=== PATIENT | female | born 1980 | race Caucasian/White ===

== ENCOUNTER 2018-09-17 12:58 | Emergency (ER) | payer OTHER ==
[2018-09-17 13:02] VITALS: BP 113/76; PULSE 68; TEMP 98; BMI 24.0
[2018-09-17] MEDS ORDERED: IBUPROFEN 400 MG TABLET (FP) PO ONE ×2 (13:07→13:12)
--- NOTE | 2018-09-17 13:17 | PDOC ---
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 Patient denies history of back pains or injury. Patient denies saddle paresthesia, urinary or fecal incontinence. Patient denies back radiculopathy Timing/Duration: 4-6 hours Past History - Past Medical History Allergies/Adverse Reactions: Allergies Allergy/AdvReac Type Severity Reaction Status Date / Time No Known Allergies Allergy Verified 09/17/18 13:02 Home Medications: Ambulatory Orders Methocarbamol [Robaxin -] 500 mg PO BID PRN #14 tablet 09/17/18 Naproxen 500 mg PO BID PRN #20 tablet 09/17/18 Asthma: No Cancer: No Cardiac Disorders: No Diabetes: No HTN: No Seizures: No Thyroid Disease: No - Suicide/Smoking/Psychosocial Hx Smoking Status: No Smoking History: Never smoked Have you smoked in the past 12 months: No Number of Cigarettes Smoked Daily: 0 Hx Alcohol Use: Yes (SOCIAL) Drug/Substance Use Hx: No Hx Substance Use Treatment: No Review of Systems - Review of Systems Able to Perform ROS?: Yes Is the patient limited [place] Islander proficient: No Constitutional: No: Malaise, Weakness HEENTM: No: Symptoms Reported Respiratory: No: Symptoms reported ABD/GI: No: Nausea, Vomiting Musculoskeletal: Yes: Symptoms Reported, See HPI, Back Pain (mid lower back), Muscle Pain. No: Joint Stiffness Neurological: No: Numbness, Paresthesia, Tingling All Other Systems: Reviewed and Negative *Physical Exam - Vital Signs Last Vital Signs Temp Pulse Resp BP Pulse Ox 98 F 68 18 113/76 99 09/17/18 13:01 09/17/18 13:01 09/17/18 13:01 09/17/18 13:01 09/17/18 13:01 - Physical Exam Comments: 09/17/18 13:15 GENERAL: Well developed, well nourished. Awake and alert. No acute distress. CARDIOVASCULAR: Regular rate and rhythm. No murmurs, rubs, or gallops. PULMONARY: No evidence of respiratory distress. Lungs clear to auscultation bilaterally. No wheezing, rales or rhonchi. ABDOMINAL: Soft. Non-tender. Non-distended. No rebound or guarding. No organomegaly. Normoactive bowel sounds MUSCULOSKELETAL : mild tenderness over posterior paravertebral muscle lumbosacral spine of L4-S2 on bilateral sides. mild mid-line tenderness to lower lumber spine No bony deformities SKIN: Warm and dry. Normal capillary refill. No rashes. No jaundice. NEUROLOGICAL: Alert, awake, appropriate. No motor deficits in the lower extremities. Gait is normal without ataxia. PSYCHIATRIC: Cooperative. Good eye contact. Appropriate mood and affect. General Appearance: Yes: Nourished, Appropriately Dressed. No: Apparent Distress Moderate Sedation - Procedure Monitoring Vital Signs: Procedure Monitoring Vital Signs Temperature 98 F 09/17/18 13:01 Pulse Rate 68 09/17/18 13:01 Respiratory Rate 18 09/17/18 13:01 Blood Pressure 113/76 09/17/18 13:01 O2 Sat by Pulse Oximetry (%) 99 09/17/18 13:01 ED Treatment Course - RADIOLOGY Radiology Studies Ordered: Category Date Time Status SPINE-LUMBAR SACRAL [RAD] Stat Radiology 09/17/18 13:07 Ordered Medical Decision Making - Medical Decision Making 09/17/18 13:17 Patient with no significant past medical history present with complaint of lower back pain status post heavy lifting today. Exam significant for mild tenderness to lower lumbar region of L4-S2 with mild midline tenderness. Pain increased with external rotation of hip. Motrin 800 mg by mouth ordered for pain. X-ray of lumbosacral ordered to rule out acute dislocation. 09/17/18 13:42 X-ray of lumbosacral shows straightening of the lumbar spine consistent with spasm. No dislocation seen on x-ray. Patient stable for discharge on NSAIDs and muscle relaxer with orthopedics follow-up as needed. Patient advised to rest lower back in the next few days with no heavy lifting. *DC/Admit/Observation/Transfer Diagnosis at time of Disposition: Lumbago without sciatica Qualifiers: Chronicity: acute Back pain laterality: bilateral Qualified Code(s): M54.5 - Low back pain - Discharge Dispostion Disposition: HOME Condition at time of disposition: Stable Decision to Admit order: No - Prescriptions Prescriptions: Methocarbamol [Robaxin -] 500 mg PO BID PRN #14 tablet PRN Reason: Back Pain Naproxen 500 mg PO BID PRN #20 tablet PRN Reason: Back Pain - Referrals Referrals: Froy Solorzano MD [Primary Care Provider] - - Patient Instructions Printed Discharge Instructions: DI for Low Back Pain, Exercise May Reduce Risk of Low Back Pain Additional Instructions: Rest lower back for the next 3 days. No heavy lifting in the next 5 days. Take medication as prescribed as needed for back pain. Do back exercise and stretching to help her back pain. Follow-up with referred orthopedics if no improvement in 5 days. - Post Discharge Activity Forms/Work/School Notes: Back to Work
== END 2018-09-17 14:04 | disposition home or self-care (01) ==
LOC: JERFT 12:58
DX: S39.82XA Other specified injuries of lower back, initial encounter (principal); M54.5 Low back pain; X50.0XXA Overexertion from strenuous movement or load, initial encounter; Y93.F2 Activity, caregiving, lifting; Y92.230 Patient room in hospital as the place of occurrence of the external cause; Y99.0 Civilian activity done for income or pay
CPT/HCPCS: 72100-TC-FY; 99281-25

== ENCOUNTER 2019-07-08 01:25 | Inpatient (IN) | payer OTHER ==
[2019-07-08] MEDS ORDERED: LIDOCAINE HCL 1% PRESERVATIVE FREE - 30ML VIAL ONE (02:32)
[2019-07-08] MEDS ORDERED: OXYTOCIN 20 UNITS in 0.9% NS 20 UNIT/1,000 ML INFUS.BAG IV ONE ×2 (02:32→05:46)
[2019-07-08 02:54] LABS: BASO % 0.3 % (0-2.0); EOS % 0.4 % (0-4.5); HEMATOCRIT 39.6 % (32.4-45.2); HEMOGLOBIN 13.2 GM/dL (10.7-15.3); LYMPH % 18.8 % (8-40); MCHC 33.4 g/dl (32.0-36.0); MEAN CELL VOLUME 95.8 fl (80-96); MONO % 8.4 % (3.8-10.2); NEUT % 72.1 % (42.8-82.8); PLATELET COUNT 266 K/MM3 (134-434); RBC 4.13 M/mm3 (3.60-5.2); WHITE BLOOD COUNT 11.7 K/mm3 (4.0-10.0)
[2019-07-08 03:05] LABS: INR 0.92 (0.83-1.09); PROTHROMBIN TIME (PATIENT) 10.9 SEC (9.7-13.0)
[2019-07-08 03:08] LABS: ACTIVATED PTT 31.8 SECONDS (25.2-36.5)
[2019-07-08 03:12] LABS: BLOOD UREA NITROGEN 11.9 mg/dL (7-18); CALCIUM 8.4 mg/dL (8.5-10.1); CREATININE 0.5 mg/dL (0.55-1.3); POTASSIUM 3.9 mmol/L (3.5-5.1)
[2019-07-08] MEDS ORDERED: BENZOCAINE 20% 57 GM BOTTLE TP PRN (03:21)
[2019-07-08] MEDS ORDERED: WITCH HAZEL 50% (TUCKS) 40 PAD/JAR PAD TP PRN (03:21)
[2019-07-08] MEDS ORDERED: BISACODYL 10 MG SUPP.RECT RC PRN (03:21)
[2019-07-08] MEDS ORDERED: METHYLERGONOVINE MALEATE 0.2 MG/1 ML AMP IM PRN (03:21)
[2019-07-08] MEDS ORDERED: BENZOCAINE 28 GM HEMORRHOIDAL OINTMENT TP PRN (03:21)
[2019-07-08] MEDS ORDERED: OXYTOCIN 20 UNITS in 0.9% NS 20 UNIT/1,000 ML INFUS.BAG IV SCH (03:30)
--- NOTE | 2019-07-08 03:33 | HP ---
Past Medical History - Admission History of Present Illness: 38 yo @ 38 0/7 wks by first trimester ultrasound, EDC 07/22/2019 complicated by: 1. AMA - Seen by Stephen NASH Negative NT/NIPT/AFP Patient presents with chief complaint of contractions that began at 2200. She reports movement, denies leakage of fluid or vaginal bleeding. History Source: Patient Limitations to Obtaining History: No Limitations - Past Medical History Cardiovascular: No: HTN Pulmonary: No: Asthma Gastrointestinal: No: GERD ...: 2 ...Para: 1 ...Term: 1 ... Weeks Gestation by Dates: 38.0 ...EDC by Dates: 07/22/19 Heme/Onc: No: Anemia - Past Surgical History Past Surgical History: Yes: None Hx Myomectomy: No Hx Transabdominal Cerclage: No - Smoking History Smoking history: Never smoked - Alcohol/Substance Use Hx Alcohol Use: No History of Substance Use: reports: None Home Medications - Allergies Allergies/Adverse Reactions: Allergies Allergy/AdvReac Type Severity Reaction Status Date / Time No Known Allergies Allergy Verified 07/08/19 03:21 Family Medical History Family History: Denies Review of Systems - Review of Systems Constitutional: reports: No Symptoms Neck: reports: No Symptoms Cardiovascular: reports: No Symptoms Respiratory: reports: No Symptoms Gastrointestinal: reports: No Symptoms Musculoskeletal: reports: No Symptoms Neurological: reports: No Symptoms Hematology/Lymphatic: reports: No Symptoms Physical Exam - Maternity Vital Signs: Vital Signs Temperature 98.4 F 07/08/19 02:00 Pulse Rate 88 07/08/19 02:00 Respiratory Rate 20 07/08/19 02:00 Blood Pressure 137/80 07/08/19 02:00 O2 Sat by Pulse Oximetry (%) Constitutional: Yes: Well Nourished, No Distress, Calm Cardiovascular: Yes: Regular Rate and Rhythm Lungs: Clear to auscultation - Abdominal Exam/OB Number of Fetuses: Single Presentation: Vertex Contractions: Yes Regularity: Regular Category: I Accelerations: None Decelerations: None - Vaginal Exam/OB Vaginal Bleediing: No Speculum Exam: Yes Dilatation (cm): 4 - Physical Exam Edema: No - Labs Lab Results: CBC, BMP 07/08/19 02:30 07/08/19 02:30 PNL: AB positive, antibody negative, RPR NR; HIV neg; HCV neg; HBs Ag neg; Hg Torrie AA; GCT 119; GBS neg Hemorrhage Risk Assessment - Risk Factors Medium Risk Factors: Yes: None High Risk Factors: Yes: None Risk Score: 1 Risk Level: Medium Risk Assessment/Plan 38 yo @ 38 0/7 wks active labor 1. Admit to L&D 2. Consents reviewed and signed 3. GBS neg 4. Will offer pain medcation upon patient request 5. Will proceed with expectant management
--- NOTE | 2019-07-08 03:37 | PN ---
Delivery - Delivery Vaginal Delivery: No Problems Type of Anesthesia: None Episiotomy/Laceration: Midline, 2nd degree EBL (cc): 400 Delivery, Single - Stages of Labor Date 1st Stage Initiatied: 07/08/19 Time 1st Stage Initiated: 01:40 Date 2nd Stage Initiated: 07/08/19 Time 2nd Stage Initiated: 02:40 Date of Delivery: 07/08/19 Time of Delivery: 02:58 Date Placenta Delivered: 07/08/19 Time Placenta Delivered: 03:11 Placenta: Yes: Spontaneous - Condition of Infant Infant Gender: Female Position: Right, OA Total Hours ROM (Hrs/Mins): 1 hour 11 minutes - 1 Minute Total Score: 9 5 Minutes Total Score: 9 Remarks - Remarks Remarks: Patient progressed to fully dilated and at 0258 via delivered a viable female infant in CLEMENTE position, APGARs 9,9. Weight and length unknown at this time. Head delivered spontaneously followed by shoulders and body without difficulty. with spontaneous cry. Nose and mouth was bulb suctioned. Cord was clamped and cut. Perineum and vagina examined, a second degree laceration was noted and repaired in the usual fashion. Placenta was delivered spontaneously and intact. 20 units of pitocin in 1 L IVF was given. All counts correct x 2. Mother and stable in LDR. EBL 400cc.
[2019-07-08] MEDS ORDERED: BUTORPHANOL TARTRATE 2 MG/ML VIAL IVPB ONE (07:15)
[2019-07-08] MEDS ORDERED: ELECTROLYTE-148 SOLN 1,000 ML IV SCH (07:15)
[2019-07-08] MEDS ORDERED: PROMETHAZINE HCL 25 MG/1 ML VIAL IVPB ONE (07:15)
[2019-07-08] MEDS ORDERED: IBUPROFEN 600 MG TABLET (FP) PO ONE (11:42)
[2019-07-08] MEDS ORDERED: ACETAMINOPHEN 325 MG TABLET (FP) ONE (11:42)
[2019-07-08] MEDS: IBUPROFEN 600 MG TABLET (FP) PO PRN ×2 (11:45→22:35)
[2019-07-08] MEDS: ACETAMINOPHEN 325 MG TABLET (FP) PO PRN ×2 (11:45→22:36)
[2019-07-09] MEDS: PRENATAL VITAMINS W/ FOLIC ACID TABLET (FP) PO SCH ×2 (07:37→10:49)
--- NOTE | 2019-07-09 07:47 | PN ---
Progress Note (short form) - Note Progress Note: ppd 1,doing well, no c/o CBC, BMP 07/08/19 02:30 07/08/19 02:30 Last Vital Signs Temp Pulse Resp BP Pulse Ox 97.7 F 86 18 128/67 97 07/09/19 05:56 07/09/19 05:56 07/09/19 05:56 07/09/19 05:56 07/08/19 03:30 abdomen soft, no cva uterus firm, non tender lochia mild , no clots no calf tenderness plan ambulate , cbc plan for d/c home in am
[2019-07-09 09:10] LABS: BASO % 0.3 % (0-2.0); EOS % 1.9 % (0-4.5); HEMATOCRIT 32.4 % (32.4-45.2); HEMOGLOBIN 10.7 GM/dL (10.7-15.3); LYMPH % 17.8 % (8-40); MCH 31.7 pg (25.7-33.7); MEAN CELL VOLUME 96.1 fl (80-96); MEAN PLT VOLUME 8.6 fl (7.5-11.1); MONO % 5.7 % (3.8-10.2); NEUT % 74.3 % (42.8-82.8); PLATELET COUNT 213 K/MM3 (134-434); RBC 3.37 M/mm3 (3.60-5.2); RDW 15.6 % (11.6-15.6); WHITE BLOOD COUNT 13.5 K/mm3 (4.0-10.0)
[2019-07-09] MEDS: IBUPROFEN 600 MG TABLET (FP) PO PRN (21:16)
[2019-07-09] MEDS: ACETAMINOPHEN 325 MG TABLET (FP) PO PRN (21:16)
[2019-07-09] MEDS ORDERED: SENNOSIDES/DOCUSATE COMBO (SENNA PLUS) TABLET (UD) PO PRN (22:00)
[2019-07-10] MEDS: ACETAMINOPHEN 325 MG TABLET (FP) PO PRN (05:43)
[2019-07-10] MEDS: IBUPROFEN 600 MG TABLET (FP) PO PRN (05:44)
[2019-07-10 09:21] VITALS: BP 119/69; PULSE 76; TEMP 98.7
[2019-07-10] MEDS: PRENATAL VITAMINS W/ FOLIC ACID TABLET (FP) PO SCH (09:44)
--- NOTE | 2019-07-10 13:56 | DS ---
Physical Exam-CUSTOMER ACQUISITION SPECIALIST Vital Signs: Vital Signs Temperature 98.7 F 07/10/19 08:25 Pulse Rate 76 07/10/19 08:25 Respiratory Rate 18 07/10/19 08:25 Blood Pressure 119/69 07/10/19 08:25 O2 Sat by Pulse Oximetry (%) 97 07/08/19 03:30 Constitutional: Yes: Well Nourished, No Distress, Calm Eyes: Yes: WNL HENT: Yes: WNL, Atraumatic, Normocephalic Neck: Yes: WNL, Supple, Trachea Midline Cardiovascular: Yes: WNL, Regular Rate and Rhythm Respiratory: Yes: WNL, Regular, CTA Bilaterally Gastrointestinal: Yes: WNL, Normal Bowel Sounds, Soft ...Rectal Exam: Yes: WNL Renal/: Yes: WNL Pelvis: Yes: WNL, Lymph Nodes ....Post : Yes: Uterus firm, Uterus non-tender Breast(s): Yes: WNL Musculoskeletal: Yes: WNL Extremities: Yes: WNL Integumentary: Yes: WNL Neurological: Yes: WNL, Alert, Oriented ...Motor Strength: WNL Psychiatric: Yes: WNL, Alert, Oriented Labs: CBC, BMP 07/09/19 08:15 07/08/19 02:30 Delivery - Delivery Vaginal Delivery: No Problems Type of Anesthesia: Local Episiotomy/Laceration: Midline, 2nd degree EBL (cc): 400 Delivery, Single - Stages of Labor Date 1st Stage Initiatied: 07/08/19 Time 1st Stage Initiated: 01:40 Date 2nd Stage Initiated: 07/08/19 Time 2nd Stage Initiated: 02:40 Date of Delivery: 07/08/19 Time of Delivery: 02:58 Time Placenta Delivered: 03:11 Placenta: Yes: Spontaneous - Condition of Knife Operator/Pulmonary Function Technician Present: No Infant Gender: Female Weight: 7 lb 15 oz Position: Right, OA Total Hours ROM (Hrs/Mins): 1 hour 11 minutes - 1 Minute Total Score: 9 5 Minutes Total Score: 9 - Feeding Plan Initial Plan: Elected not to breastfeed exclusively throughout hospitalization Discharge Summary Problems reviewed: Yes Reason For Visit: LABOR Procedures: Principal: normal vaginal delivery Hospital Course: unremarkable Plan of Treatment: Return to office in 4-6 wks Physical activity Resume your normal everyday activity as tolerated no heavy lifting or exercise until seen by your surgeon. You may walk unlimited [place] of and climb stairs. You may resume driving the car when you feel safe and comfortable behind the wheel. No sexual activity as instructed. Wound care If you have a bandage, leave it on, and keep dry for 48-72 hours. After that time discard the outer bandage. If they are tapes on the skin under the out of bandage leave them in place. They will peel off in the next 7 to 10 days. Do Not Peel them off. You may shower the day after surgery. If there are tapes present on the skin, you may shower over them. Diet There are no dietary restrictions. Eat healthy, high-fiber foods. Drink 6 to 8 glasses of liquid each day. This will assist in keeping your bowels are regular. Pain management You may take Tylenol or acetaminophen or Ibuprofen (for example, Motrin, Advil etc.) from my pain prescription medication is ordered should be taken as prescribed for moderate to severe pain. Call MD for any of the following: Severe pain not relieved by medication Fever of 101 or higher Excessive bleeding or drainage on dressing Inability to urinate Condition: Good - Instructions Diet, Activity, Other Instructions: Call Dr. Landry and make appt. to be seen in 4 to 6 weeks. If pain, fever or heavy bleeding call M.D. Referrals: Josefina Landry MD [Staff Physician] - Disposition: HOME - Home Medications Comprehensive Discharge Medication List: Ambulatory Orders Lidocaine 5% Patch [Lidoderm -] 1 patch TP DAILY PRN #30 patch 09/17/18 Methocarbamol [Robaxin -] 500 mg PO BID #14 tablet 09/17/18 Naproxen 500 mg PO BID PRN #20 tablet 09/17/18 Vitamins (Sjr) - 1 tab PO DAILY 07/08/19 Prescription Drug Monitoring Program (I-STOP) results: I-STOP reviewed and no issues identified
== END 2019-07-10 17:30 | disposition home or self-care (01) | DRG 807 ==
LOC: JLDR 01:25 → MERGE 01:25 → J3W 15:33
PROVIDERS: ADMIT Obstetrics & Gynecology; ATTEND Obstetrics & Gynecology
PROC: 10E0XZZ Delivery of Products of Conception, External Approach (ICD-10-PCS; principal; 2019-07-08)
PROC: 0KQM0ZZ Repair Perineum Muscle, Open Approach (ICD-10-PCS; 2019-07-08)
PROC: 0W8NXZZ Division of Female Perineum, External Approach (ICD-10-PCS; 2019-07-08)
DX: O70.1 Second degree perineal laceration during delivery (principal); Z37.0 Single live birth; Z3A.38 38 weeks gestation of pregnancy
CPT/HCPCS: 36415; 59409; 80048; 85025; 85610; 85730; 86593; 86850; 86900; 86901; 87389

== ENCOUNTER 2021-01-01 09:15 | Emergency (ER) | payer OTHER ==
[2021-01-01 09:32] VITALS: BP 91/64; PULSE 61; TEMP 98.6; BMI 22.6
[2021-01-01] MEDS ORDERED: ACETAMINOPHEN 650 MG/20.3 ML ORAL SOLUTION (CUPS) PO ONE (10:20)
[2021-01-01] MEDS ORDERED: ACETAMINOPHEN 325 MG TABLET (FP) ONE (10:36)
== END 2021-01-01 11:05 | disposition home or self-care (01) ==
LOC: JER 09:15
DX: M25.561 Pain in right knee (principal); M25.562 Pain in left knee
CPT/HCPCS: 73562-TC-LT-FY; 73562-TC-RT-FY; 99284-25

== ENCOUNTER 2021-11-19 04:43 | Day surgery (SDC) | payer OTHER ==
[2021-11-19 09:59] VITALS: TEMP 97
[2021-11-19 10:39] VITALS: BP 126/71; PULSE 70
== END 2021-11-19 11:30 | disposition home or self-care (01) ==
LOC: JASU-ENDO 04:43
PROVIDERS: ATTEND Internal Medicine Gastroenterology
PROC: 0DJD8ZZ Inspection of Lower Intestinal Tract, Via Natural or Artificial Opening Endoscopic (ICD-10-PCS; principal; 2021-11-19 09:00)
DX: Z12.11 Encounter for screening for malignant neoplasm of colon (principal); K92.1 Melena; K64.8 Other hemorrhoids
CPT/HCPCS: 81025

== ENCOUNTER 2023-09-01 13:50 | Emergency (ER) | payer OTHER ==
[2023-09-01 14:09] VITALS: BP 113/69; PULSE 69; RESP 18; TEMP 98.3; BMI 24.6
== END 2023-09-01 14:44 | disposition home or self-care (01) ==
LOC: JERFT 13:50
DX: H10.33 Unspecified acute conjunctivitis, bilateral (principal)
CPT/HCPCS: 99283-25

== ENCOUNTER 2023-11-24 10:56 | Emergency (ER) | payer OTHER ==
[2023-11-24 11:09] VITALS: BP 128/67; PULSE 68; RESP 16; TEMP 97.8; BMI 23.7
== END 2023-11-24 12:12 | disposition home or self-care (01) ==
LOC: JERFT 10:56
DX: H61.21 Impacted cerumen, right ear (principal); H92.01 Otalgia, right ear; R09.81 Nasal congestion
CPT/HCPCS: 99283-25

== ENCOUNTER 2024-09-23 12:31 | Emergency (ER) | payer OTHER ==
[2024-09-23 12:41] VITALS: BP 109/72; PULSE 81; RESP 20; TEMP 98.4; BMI 24.0
[2024-09-23] MEDS: ACETAMINOPHEN 1000 MG/100 ML BAG IVPB ONE (15:01)
[2024-09-23 15:58] LABS: BASO % 0.4 % (0-2.0); EOS % 1.6 % (0-4.5); HEMATOCRIT 41.3 % (32.4-45.2); HEMOGLOBIN 13.7 GM/dL (10.7-15.3); LYMPH % 33.3 % (8-40); MCH 30.3 pg (25.7-33.7); MCHC 33.1 g/dl (32.0-36.0); MEAN CELL VOLUME 91.6 fl (80-96); MEAN PLT VOLUME 8.7 fl (7.5-11.1); MONO % 6.3 % (3.8-10.2); NEUT % 58.4 % (42.8-82.8); PLATELET COUNT 222 10^3/uL (134-434); RBC 4.51 M/mm3 (3.60-5.2); RDW 14.1 % (11.6-15.6)
[2024-09-23 17:33] LABS: POTASSIUM 4.7 mmol/L (3.5-5.1)
[2024-09-23 17:35] LABS: BLOOD UREA NITROGEN 19.8 mg/dL (7-18)
[2024-09-23 17:36] LABS: ALBUMIN 4.2 g/dl (3.4-5.0)
[2024-09-23 17:38] LABS: CREATININE 0.7 mg/dL (0.55-1.3)
[2024-09-23 17:40] LABS: BILIRUBIN,TOTAL 0.4 mg/dL (0.2-1); TOT PROT 7.4 g/dl (6.4-8.2)
== END 2024-09-23 19:02 | disposition left against medical advice (07) ==
LOC: JER 12:31
DX: R51.9 Headache, unspecified (principal); H92.02 Otalgia, left ear; K11.8 Other diseases of salivary glands
CPT/HCPCS: 0241U-QW; 36415; 70491-TC; 76536-TC; 80053; 85025; 99285-25; Q9967